=== PATIENT | male | born 1955 | race Caucasian/White ===

== ENCOUNTER 2019-07-02 18:47 | Emergency (ER) | payer OTHER ==
[~2019-07-02] VITALS: Ht 175.3 cm; Wt 106.6 kg
[2019-07-02 20:58] VITALS: BP 131/85
[2019-07-02] MEDS ORDERED: KETOROLAC TROMETH 60MG/2ML VIAL IM ONE (21:00)
[2019-07-02] MEDS ORDERED: methylPREDNISolone SOD SUCC 125 MG/2 ML VL IM ONE (21:00)
== END 2019-07-02 21:51 | disposition home or self-care (01) ==
LOC: ER 18:47
DX: S83.91XA Sprain of unspecified site of right knee, initial encounter (principal); M71.21 Synovial cyst of popliteal space [Baker], right knee; X58.XXXA Exposure to other specified factors, initial encounter; Y93.89 Activity, other specified; Y92.89 Other specified places as the place of occurrence of the external cause; Y99.8 Other external cause status
CPT/HCPCS: 29505; 73562; 96372; 99283; J1885; J2930

== ENCOUNTER 2019-07-20 12:55 | Inpatient (IN) | payer OTHER ==
[~2019-07-20] VITALS: Ht 175.3 cm; Wt 117.4 kg
[2019-07-20] MEDS ORDERED: IBUPROFEN 800 MG TAB PO ONE (14:30)
[2019-07-20 14:55] LABS: Basophils # (auto) 0 uL; Basophils % (auto) 0.1 % (0.0-2.0); Eosinophils # (auto) 0 uL; Eosinophils % (auto) 0.3 % (0.0-7.0); Hematocrit 44.5 % (41.0-53.0); Hemoglobin 15.7 g/dL (13.5-17.5); Lymphocytes # (auto) 0.6 uL; Lymphocytes % (auto) 3.9 % (10.0-50.0); Mean Corpuscular Hemoglobin 30.7 pg (28.0-32.0); Mean Corpuscular Hgb Conc. 35.3 g/dL (32.0-36.0); Monocytes # (auto) 1.5 uL; Monocytes % (auto) 9.2 % (0.0-12.0); Neutrophils # (auto) 13.7 uL; Neutrophils % (auto) 86.5 % (37.0-80.0); Nucleated Red Blood Cells % 0.1 %; Platelet Count (auto) 253 10^3/uL (140-450); Red Blood Cells 5.11 10^6/uL (4.5-5.90); Red Cell Distribution Width 12.5 % (11.8-14.3); White Blood Cell 15.8 10^3/uL (4.4-10.8)
[2019-07-20 15:14] LABS: Albumin 3.5 g/dL (3.4-5.0); Calcium 9.6 mg/dL (8.5-10.1); Potassium 3.8 mmol/L (3.5-5.1)
[2019-07-20 15:17] LABS: Lactic Acid w/Reflex 2.3 mmol/L (0.4-2.0)
[2019-07-20 15:19] LABS: BUN/Creatinine Ratio 15.9; Bilirubin, Total 0.9 mg/dL (0.2-1.0); Total Protein 8.1 g/dL (6.4-8.2)
[2019-07-20] MEDS ORDERED: PIPERACILLIN-TAZO 4.5GM 100 ML IV ONE (16:00)
[2019-07-20] MEDS ORDERED: SODIUM CHLORIDE 0.9% 1,000 ML IV ONE ×2 (16:15→18:00)
[2019-07-20] MEDS ORDERED: ACETAMINOPHEN 500 MG TAB PO PRN (18:00)
[2019-07-20] MEDS ORDERED: MORPHINE SULF INJ 2 MG/ML SYRINGE 1ML IV PRN (18:00)
[2019-07-20] MEDS ORDERED: LEVOFLOXACIN 500MG 100 ML IV ONE (18:00)
[2019-07-20] MEDS ORDERED: NITROGLYCERIN 0.4 MG SL TAB SL PRN (18:00)
[2019-07-20] MEDS ORDERED: PROMETHAZINE HCL 25 MG/ML 1ML IV PRN (18:00)
[2019-07-20] MEDS ORDERED: traMADol HCL 50 MG TAB PO PRN (18:00)
[2019-07-20] MEDS ORDERED: NALBUPHINE HCL 10 MG/1ml INJECTION IV PRN (18:00)
[2019-07-20] MEDS ORDERED: ENALAPRILAT 1.25 MG/ML-1ML VIAL IV PRN (18:15)
[2019-07-20] MEDS ORDERED: CLINDAMYCIN 900MG IV 50 ML IV ONE (20:00)
[2019-07-20] MEDS: SODIUM CHLORIDE 0.9% 1,000 ML IV SCH (20:49)
--- NOTE | 2019-07-20 21:35 | NUR ---
MS admit from ER SCOTT ARIAS admitted to tele/MS after SBAR received. Patient oriented to Linda Dye, primary RN, unit, room, bed, and unit policies regarding patient care and visiting hours. Patient weighed by bed scale and encouraged to call if they need something. All questions and concerns addressed, patient verbalized understanding. Patient resting in bed, bed in lowest position, call light at his side within reach and side rales up x2.
[2019-07-20 22:55] VITALS: BP 124/79
[2019-07-21] MEDS: SODIUM CHLORIDE 0.9% 1,000 ML IV SCH ×3 (00:38→12:11)
[2019-07-21] MEDS ORDERED: CYAN100T7 PO (02:17)
[2019-07-21] MEDS ORDERED: HYDR25TA4 PO (02:17)
[2019-07-21] MEDS ORDERED: ASPI-404 PO (02:17)
[2019-07-21] MEDS ORDERED: SIMV10TA84 PO (02:17)
[2019-07-21] MEDS: CLINDAMYCIN 600MG IV 50 ML IV SCH ×3 (04:01→20:01)
[2019-07-21 04:56] VITALS: BP 121/71
[2019-07-21 08:15] LABS: Basophils # (auto) 0 uL; Basophils % (auto) 0.3 % (0.0-2.0); Eosinophils # (auto) 0.1 uL; Eosinophils % (auto) 0.9 % (0.0-7.0); Hemoglobin 13.6 g/dL (13.5-17.5); Lymphocytes # (auto) 0.9 uL; Lymphocytes % (auto) 8.4 % (10.0-50.0); Mean Corpuscular Hemoglobin 30.3 pg (28.0-32.0); Mean Corpuscular Volume 86.6 fL (80.0-100.0); Monocytes # (auto) 1.4 uL; Monocytes % (auto) 12.8 % (0.0-12.0); Neutrophils # (auto) 8.5 uL; Neutrophils % (auto) 77.6 % (37.0-80.0); Platelet Count (auto) 202 10^3/uL (140-450); Red Cell Distribution Width 12.4 % (11.8-14.3); White Blood Cell 10.9 10^3/uL (4.4-10.8)
[2019-07-21 08:23] LABS: Potassium 3.5 mmol/L (3.5-5.1)
[2019-07-21 08:30] LABS: Albumin 3.1 g/dL (3.4-5.0); BUN/Creatinine Ratio 19.6; Bilirubin, Total 0.8 mg/dL (0.2-1.0); Calcium 9.1 mg/dL (8.5-10.1); Total Protein 7.2 g/dL (6.4-8.2)
[2019-07-21 09:00] VITALS: BP_SYST 127; BP_SYST 134; BP_DIAS 74; BP_DIAS 91
--- NOTE | 2019-07-21 09:30 | NUR ---
DR UREÑA CALLED HE REPORTS HE WANTS A CT SCAN DONE, CALLED RADIOLOGY. RADIOLOGY REPORTS THEY ARE ON THIER WAY TO GET PATIENT.
[2019-07-21] MEDS ORDERED: IOHEXOL 300 MG/ML 100ML BOTTLE IJ ONE (09:38)
[2019-07-21 10:17] LABS: Urine WBC None Seen /hpf (0 - 3)
[2019-07-21 10:27] LABS: Urine Bacteria NONE SEEN /hpf (None Seen); Urine Blood Negative /uL (Negative); Urine Specific Gravity 1.014 (1.001-1.035)
--- NOTE | 2019-07-21 10:52 | NUR ---
CT RESULTS HAVE COME BACK. PAGED DR UREÑA TO SEE WHAT THE PLAN IS. AWAITING CALL BACK.
--- NOTE | 2019-07-21 11:05 | NUR ---
DR UREÑA CALLED BACK, REPORTS PT WILL HAVE PROCEDURE ON TUESDAY. NEW ORDERS FOR PT, APTT AND NPO AFTER MIDNIGHT ON TUESDAY. CALLED AND PAGED DR WHITING TO NOTIFY AND TO GET DIET SO PT CAN EAT, AWAITING CALL BACK.
--- NOTE | 2019-07-21 11:12 | NUR ---
DR WHITING CALLED BACK, NOTIFIED PT IS TO HAVE PROCEDURE TUESDAY. NEW ORDERS FOR REGULAR DIET.
[2019-07-21 13:00] VITALS: BP 142/88
[2019-07-21 15:14] LABS: INR 1.08 (0.9-1.15); Partial Thromboplastin Time 31.9 sec (23.64-32.05)
[2019-07-21] MEDS: LEVOFLOXACIN 500MG 100 ML IV SCH (17:28)
--- NOTE | 2019-07-21 19:40 | NUR ---
Opening Shift Note Assumed care of patient, awake and alert. No S/S of distress/SOB or pain. Instructed on POC and to call for assist PRN, will continue to monitor for changes Q1hr and PRN. PATIENT RESTING IN BED, BED IN LOWEST POSITION, SIDE RALES UP X2, CALL LIGHT AT PATIENTS SIDE.
[2019-07-21 22:19] VITALS: BP 151/88
[2019-07-22] MEDS: SODIUM CHLORIDE 0.9% 1,000 ML IV SCH ×2 (00:30→03:18)
[2019-07-22] MEDS: CLINDAMYCIN 600MG IV 50 ML IV SCH ×3 (03:33→19:52)
--- NOTE | 2019-07-22 03:59 | NUR ---
IV insertion IV access obtained, via clean sterile technique by inserting 20 gauge catheter into the left hand after 1 attempt. IV secured properly. No trauma to site. Patient tolerated well. IV removal IV DC'd with clean sterile technique, catheter fully intact. Pressure dressing applied to site. Patient tolerated well.
--- NOTE | 2019-07-22 04:05 | NUR ---
PT INCREASED BP 165/110 AT 4AM, REASSESSED 15 MINUTES LATER AND AFTER HAVING THE PATIENT RELAX AND I WAS 151/87
--- NOTE | 2019-07-22 05:38 | NUR ---
IV insertion IV access obtained, via clean sterile technique by inserting 20 gauge catheter at LEFT FOREARM after 2 attempt(s). IV secured properly. No trauma to site. Patient tolerated well. IV removal IV DC'd with clean sterile technique, catheter fully intact. Pressure dressing applied to site. Patient tolerated well. NOTE:
[2019-07-22 05:51] VITALS: BP 165/110
[2019-07-22 09:00] VITALS: BP 120/78
[2019-07-22] MEDS ORDERED: ENALAPRILAT 1.25 MG/ML-1ML VIAL IV PRN (09:45)
[2019-07-22] MEDS: amLODIPine BESYLATE 5 MG TAB PO SCH (10:36)
[2019-07-22] MEDS: SOD CHL 0.9%/ KCL 20MEQ 1,000 ML IV SCH ×2 (10:36→21:01)
[2019-07-22 13:00] VITALS: BP 137/83
[2019-07-22 17:00] VITALS: BP 127/78
[2019-07-22] MEDS: LEVOFLOXACIN 500MG 100 ML IV SCH (17:00)
--- NOTE | 2019-07-22 17:48 | NUR ---
LINETTE ANDERSEN REPORTS DR UREÑA CALLED. REPORTS PT IS TO BE NPO AFTER MIDNIGHT AND THE PROCEDURE IS AN INCISION AND DRAINAGE OF BUTTOCKS ABSCESS.
--- NOTE | 2019-07-22 19:30 | NUR ---
Opening Shift Note Assumed care of patient, awake and alert. No S/S of distress/SOB or pain. Instructed on POC and to call for assist PRN, will continue to monitor for changes Q1hr and PRN. PATIENT COMFORTABLE IN BED, BED IN LOWEST POSITION, SIDE RALES UP X2, CALL LIGHT IN HAND.
[2019-07-22 22:00] VITALS: BP 141/89
[2019-07-23] MEDS: CLINDAMYCIN 600MG IV 50 ML IV SCH ×3 (03:38→21:00)
[2019-07-23] MEDS ORDERED: ATOR10TA52 PO (03:44)
[2019-07-23] MEDS ORDERED: LISI40TA PO (03:44)
[2019-07-23] MEDS ORDERED: CHOL20007 PO (03:46)
[2019-07-23] MEDS: SOD CHL 0.9%/ KCL 20MEQ 1,000 ML IV SCH (05:27)
[2019-07-23 06:00] VITALS: BP 113/69
[2019-07-23 06:05] LABS: Basophils # (auto) 0 uL; Basophils % (auto) 0.7 % (0.0-2.0); Eosinophils # (auto) 0.4 uL; Eosinophils % (auto) 7.1 % (0.0-7.0); Hematocrit 37.3 % (41.0-53.0); Lymphocytes # (auto) 1.4 uL; Lymphocytes % (auto) 23.4 % (10.0-50.0); Mean Corpuscular Hemoglobin 30.6 pg (28.0-32.0); Mean Corpuscular Hgb Conc. 34.7 g/dL (32.0-36.0); Mean Corpuscular Volume 88.1 fL (80.0-100.0); Monocytes # (auto) 0.6 uL; Neutrophils # (auto) 3.7 uL; Neutrophils % (auto) 59.8 % (37.0-80.0); Platelet Count (auto) 251 10^3/uL (140-450); Red Blood Cells 4.24 10^6/uL (4.5-5.90); Red Cell Distribution Width 12.1 % (11.8-14.3); White Blood Cell 6.2 10^3/uL (4.4-10.8)
[2019-07-23 06:29] LABS: Albumin 2.7 g/dL (3.4-5.0); Calcium 9.3 mg/dL (8.5-10.1); Potassium 4.5 mmol/L (3.5-5.1)
[2019-07-23 06:35] LABS: BUN/Creatinine Ratio 18.8; Bilirubin, Total 0.3 mg/dL (0.2-1.0); Total Protein 6.9 g/dL (6.4-8.2)
--- NOTE | 2019-07-23 07:20 | NUR ---
Opening Shift Note Assumed care of patient, awake and alert. No S/S of distress/SOB, no pain noted or reported. Instructed on POC and to call for assistance as needed, patient verbalized understanding. Bed locked in lowest position, side rails up x2, call light within reach. Continuous bladder irrigation draining freely to gravity, no kinks. Will continue to monitor for changes Q1hr and PRN. Addendum: 07/23/19 at 0838 by Elysia Quiroga RN INCORRECT PATIENT. WILL UPDATE WITH NEW NOTE FOR THIS PATIENT.
--- NOTE | 2019-07-23 07:22 | NUR ---
Opening Shift Note Assumed care of patient, awake and alert. No S/S of distress/SOB, no pain noted or reported. Instructed on POC and to call for assistance as needed, patient verbalized understanding. Bed locked in lowest position, side rails up x2, call light within reach. Will continue to monitor for changes Q1hr and PRN.
[2019-07-23 08:00] VITALS: BP 130/83
[2019-07-23] MEDS: LEVOFLOXACIN 750MG 150 ML IV SCH (09:18)
[2019-07-23] MEDS: amLODIPine BESYLATE 5 MG TAB PO SCH (09:20)
--- NOTE | 2019-07-23 09:30 | NUR ---
PATIENT TAKEN TO OR FOR PROCEDURE. NO DISTRESS UPON DEPARTURE.
[2019-07-23] MEDS ORDERED: ceFAZolin 1GM/50ML 50 ML IV ONE (09:59)
[2019-07-23] MEDS ORDERED: fentaNYL CITRATE 100 MCG/2 ML VL ONE (10:29)
[2019-07-23] MEDS ORDERED: MEPERIDINE HCL (25 MG/ML) 1ML VIAL ONE (10:29)
[2019-07-23] MEDS ORDERED: MIDAZOLAM HCL 1MG/1ML-2 ML VIAL ONE (10:30)
[2019-07-23] MEDS ORDERED: METOCLOPRAMIDE HCL 5MG/ml INJ 2ml VIAL IV ONE (10:31)
[2019-07-23] MEDS ORDERED: ONDANSETRON HCL 4 MG/2 ML VIAL IV PRN (10:45)
[2019-07-23] MEDS ORDERED: MIDAZOLAM HCL 1MG/1ML-2 ML VIAL IV PRN (10:45)
[2019-07-23] MEDS ORDERED: HYDROmorphone HCL 2 MG/ML VL IV PRN (10:45)
[2019-07-23] MEDS ORDERED: LABETALOL HCL 5 MG/ML 4ML SYRINGE IV PRN (10:45)
[2019-07-23] MEDS ORDERED: ePHEDrine SULFATE 50 MG/ML AMP IV PRN (10:45)
[2019-07-23] MEDS ORDERED: MORPHINE SULFATE 4 MG/ML SYR/VIAL IV PRN (10:45)
[2019-07-23] MEDS ORDERED: DexAMETHasone SOD PHOS 10MG/1ML VIAL INJ ONE (11:03)
[2019-07-23] MEDS ORDERED: PROPOFOL 10 MG/ML 20 ML IV ONE (11:03)
--- NOTE | 2019-07-23 11:45 | NUR ---
Patient returned to room from OR No distress/SOB/pain noted or reported. Patients incision site assessed with saw feeder, dressing is dry and intact. Will continue to monitor for changes.
[2019-07-23 12:00] VITALS: BP 138/80
--- NOTE | 2019-07-23 12:30 | NUR ---
IV removal IV DC'd with clean sterile technique, catheter fully intact. Pressure dressing applied to site. Patient tolerated well. NOTE: [Left forearm IV painful and swollen]
[2019-07-23] MEDS: SODIUM CHLORIDE 0.9% 1,000 ML IV SCH (12:45)
--- NOTE | 2019-07-23 13:04 | NUR ---
IV insertion IV access obtained, via clean sterile technique by inserting 22 gauge catheter at right forearm after 1 attempt. IV secured properly. No trauma to site. Patient tolerated well.
[2019-07-23] MEDS ORDERED: MORPHINE SULF INJ 2 MG/ML SYRINGE 1ML IV PRN (13:45)
--- NOTE | 2019-07-23 15:48 | NUR ---
Assessment Pt is a 63 yr old alert and oriented male. Prior to admit, pt lived with his , Herbie, who is his emergency contact at [phone]. Pt uses no DME and is ambulatory and independent with ADL's. Pt's Primary is Dr. Abraham, has no AD and is currently employed. Pt stated that he has an abscess and is receiving tx here for it. Pt will d/c home upon medical clearance. Pt is understanding and agreeable to d/c plan. Pt's will transport him home. No needs assessed. Addendum: 07/23/19 at 1553 by DIAN VEGA Amended: Links added.
[2019-07-23 17:00] VITALS: BP 109/68
[2019-07-23 22:00] VITALS: BP 136/72
--- NOTE | 2019-07-23 23:45 | NUR ---
PT AAOX4, NO C/O PAIN AT THIS TIME. NO SOB OR DISTRESS. PT AMBULATES W/ STEADY GAIT. SAFETY PRECAUTIONS IN PLACE. WILL CONTINUE TO MONITOR.
--- NOTE | 2019-07-24 04:30 | NUR ---
PT SLEEPING CHEST RISING AND FALLING. NO SOB OR DISTRESS. NO C/O PAIN AT THIS TIME. SAFETY PRECAUTIONS IN PLACE. WILL CONTINUE TO MONITOR.
[2019-07-24 04:39] VITALS: BP 125/84
[2019-07-24] MEDS: CLINDAMYCIN 600MG IV 50 ML IV SCH ×3 (05:09→21:31)
[2019-07-24] MEDS: SODIUM CHLORIDE 0.9% 1,000 ML IV SCH ×2 (05:09→13:00)
[2019-07-24 06:46] LABS: Basophils # (auto) 0.1 uL; Basophils % (auto) 0.7 % (0.0-2.0); Eosinophils # (auto) 0.1 uL; Eosinophils % (auto) 0.4 % (0.0-7.0); Hematocrit 37.5 % (41.0-53.0); Lymphocytes # (auto) 1.5 uL; Lymphocytes % (auto) 11.9 % (10.0-50.0); Mean Corpuscular Hgb Conc. 34.8 g/dL (32.0-36.0); Mean Corpuscular Volume 86.4 fL (80.0-100.0); Monocytes # (auto) 0.7 uL; Monocytes % (auto) 5.7 % (0.0-12.0); Neutrophils # (auto) 10.2 uL; Neutrophils % (auto) 81.3 % (37.0-80.0); Platelet Count (auto) 326 10^3/uL (140-450); Red Blood Cells 4.34 10^6/uL (4.5-5.90); Red Cell Distribution Width 12.1 % (11.8-14.3); White Blood Cell 12.6 10^3/uL (4.4-10.8)
[2019-07-24 07:01] LABS: Potassium 4.6 mmol/L (3.5-5.1)
[2019-07-24 07:15] LABS: BUN/Creatinine Ratio 22.1; Calcium 9.5 mg/dL (8.5-10.1); Magnesium 2.4 mg/dL (1.6-2.6)
[2019-07-24 08:00] VITALS: BP 135/76
[2019-07-24] MEDS: LEVOFLOXACIN 750MG 150 ML IV SCH (10:32)
[2019-07-24] MEDS: amLODIPine BESYLATE 5 MG TAB PO SCH (10:32)
[2019-07-24 12:00] VITALS: BP 147/95
[2019-07-24 17:00] VITALS: BP 132/87
--- NOTE | 2019-07-24 19:30 | NUR ---
Opening Shift Note Assumed care of patient, awake and alert. No S/S of distress/SOB or pain. Instructed on POC and to call for assist PRN. Bed in lowest locked position, call light within reach, side rails up x2, fall precautions in place. Will continue to monitor for changes Q1hr and PRN.
[2019-07-24 21:10] VITALS: BP 112/67
[2019-07-25] MEDS: CLINDAMYCIN 600MG IV 50 ML IV SCH ×2 (03:48→12:36)
[2019-07-25 05:00] VITALS: BP 118/73
[2019-07-25 05:25] LABS: Hemoglobin 13.9 g/dL (13.5-17.5); Mean Corpuscular Hemoglobin 30.1 pg (28.0-32.0); Mean Corpuscular Hgb Conc. 34.6 g/dL (32.0-36.0); Mean Corpuscular Volume 86.9 fL (80.0-100.0); Platelet Count (auto) 390 10^3/uL (140-450); Red Blood Cells 4.61 10^6/uL (4.5-5.90); Red Cell Distribution Width 12.1 % (11.8-14.3); White Blood Cell 11.4 10^3/uL (4.4-10.8)
[2019-07-25 06:06] LABS: Band Neutrophils % (manual) 0; Basophils % (manual) 0 (0.0-2.0); Blast Cells 0; Metamyelocytes % 0; Myelocytes % 0; Promyelocytes % 0; Reactive Lymphocytes 0
[2019-07-25 07:08] LABS: Eosinophils % (manual) 2 (0-7); Lymphocytes % (manual) 25 (10.0-50.0); Monocytes % (manual) 7 (0-12)
[2019-07-25 08:00] VITALS: BP 144/93
[2019-07-25] MEDS: SODIUM CHLORIDE 0.9% 1,000 ML IV SCH (09:00)
[2019-07-25] MEDS: amLODIPine BESYLATE 5 MG TAB PO SCH (09:19)
[2019-07-25] MEDS: LEVOFLOXACIN 750MG 150 ML IV SCH (09:19)
[2019-07-25 12:00] VITALS: BP 129/85
[2019-07-25] MEDS ORDERED: LEVO750T2 PO (13:59)
[2019-07-25] MEDS ORDERED: SACC250C PO (13:59)
[2019-07-25] MEDS ORDERED: CLIN300C8 PO (13:59)
[2019-07-25 15:33] VITALS: BP 129/85
--- NOTE | 2019-07-25 16:40 | NUR ---
Discharge home Discharge instructions given as ordered. Encourage to follow up with PMD and surgeon, Dr Arboleda as instructed. All questions and concerns addressed. Patient verbalized understanding. Medication reconciliation form completed and copy given to patient. IV removed with catheter intact, pressure dressing applied. Surgical packing was removed from anus and patient was educated regarding post op orders. Patient refused sitz bath, stating he would rather do once he gets home. Patient was educated and provided with handout regarding sitz bath orders for three times a day. Telemetry unit returned to ICU. Patient taken to vehicle via ambulation with all personal belongings, accompanied by staff and family member. No distress upon departure.
== END 2019-07-25 16:40 | disposition home or self-care (01) | DRG 871 ==
LOC: ER 12:58 → TELE 12:59 → TELE-WESTW 21:35
PROVIDERS: ADMIT Internal Medicine; ATTEND Internal Medicine
PROC: 0Y910ZZ Drainage of Left Buttock, Open Approach (ICD-10-PCS; principal; 2019-07-23 10:34)
DX: A41.9 Sepsis, unspecified organism (principal); N17.0 Acute kidney failure with tubular necrosis; L03.317 Cellulitis of buttock; E87.1 Hypo-osmolality and hyponatremia; L02.31 Cutaneous abscess of buttock; I10 Essential (primary) hypertension; E86.0 Dehydration; E66.9 Obesity, unspecified; E78.5 Hyperlipidemia, unspecified; Z68.38 Body mass index [BMI] 38.0-38.9, adult
CPT/HCPCS: 36415; 71046; 72192; 72193; 80048; 80053; 80061; 81001; 83605; 83735; 85007; 85025; 85027; 85610; 85730; 86850; 86900; 86901; 87040; 87070; 87075; 87077; 87186; 87205; 87880; 93005; G0378; J0690; J1100; J1956; J2250; J2543; J2704; J3490

== ENCOUNTER 2020-04-12 10:40 | Emergency (ER) | payer OTHER ==
[~2020-04-12] VITALS: Ht 175.3 cm; Wt 104.3 kg
[~2020-04-12 10:40] MED LIST: ASPI-543 PO; ATOR10TA52 PO; CHOL20007 PO; CLIN300C8 PO; CYAN100T7 PO; HYDR25TA4 PO; LEVO750T8 PO; LISI40TA11 PO; SACC250C PO
[2020-04-12 11:08] VITALS: BP 136/81
[2020-04-12] MEDS ORDERED: cefTRIAXone SOD 1,000 MG VL IM ONE ×2 (13:00)
== END 2020-04-12 13:13 | disposition home or self-care (01) ==
LOC: ER 10:40
DX: L03.317 Cellulitis of buttock (principal); E78.5 Hyperlipidemia, unspecified; I10 Essential (primary) hypertension
CPT/HCPCS: 96372; 99284; J0696

== ENCOUNTER 2020-04-23 10:56 | Emergency (ER) | payer OTHER ==
[~2020-04-23] VITALS: Ht 175.3 cm; Wt 104.3 kg
[2020-04-23 11:07] VITALS: BP 120/60
== END 2020-04-23 13:00 | disposition home or self-care (01) ==
LOC: ER 10:56
DX: L02.31 Cutaneous abscess of buttock (principal); I10 Essential (primary) hypertension; E78.5 Hyperlipidemia, unspecified; Z79.899 Other long term (current) drug therapy